=== PATIENT | female | born 1960 | race Caucasian/White ===

== ENCOUNTER → 2023-11-05 11:18 | Outpatient (REF) | payer BC, SELFPAY | LOC: RAD 11:18 | PROVIDERS: ATTENDING PHYSICIAN Podiatrist Foot & Ankle Surgery; FAMILY PHYSICIAN Internal Medicine | DX: G57.52 Tarsal tunnel syndrome, left lower limb (principal); G57.51 Tarsal tunnel syndrome, right lower limb; M76.62 Achilles tendinitis, left leg; M76.61 Achilles tendinitis, right leg; M72.2 Plantar fascial fibromatosis | CPT/HCPCS: 76882 ==